=== PATIENT | male | born 1955 | race Caucasian/White ===

== ENCOUNTER 2018-01-18 08:00 | Outpatient (CLI) ==
[2018-01-18] MEDS ORDERED: ALBUTEROL 0.083% NEB NEB STA (09:14)
== END 2018-01-18 08:01 | disposition home or self-care (01) ==
LOC: CAR 08:00
PROVIDERS: ATTEND Physician Assistant
DX: J43.9 Emphysema, unspecified (principal); R07.9 Chest pain, unspecified
CPT/HCPCS: 93005; 93010

== ENCOUNTER 2018-01-31 06:35 | Outpatient (CLI) ==
--- NOTE | 2018-01-31 11:09 | STRESSECHO ---
Date of Test: 01/31/18 Ordering Physician: BRENDA LACEY APRN Occupation: RETIRED Reason for Exam: CHEST PAIN, EMPHYSEMA Smoking History: QUIT 2 1/2 YR AGO Height: 69" Weight: 175 LBS Current Medications: SYMBICORT, SPIRIVA, PRO AIR, ALBUTEROL, ZANTAC Resting EKG: SINUS RHYTHM/ NO CUTE CHANGES Target Heart Rate: 133/157 S-T SEGMENT STAGE MPH/GRADE HEART RATE BPM BLOOD PRESSURE MMHG RHYTHM +/- ELEVATION DEPRESSION SYMPTOMS,COMMENTS AT REST 60 118/70 SR X NO COMMENTS 1 1.7/10% 100 140/80 SR X NO COMMENTS 2 2.5/12% 3 3.4/14% 4 4.2/16% 5 5.0/18% Immediately After 130 SR X SHORT OF AIR Minutes Post Exercise 4:00 70 128/80 SR X SHORT OF AIR Minutes Post Exercise DURATION OF EXERCISE: 4:47 MAXIMUM HEART RATE REACHED: 130 REASON FOR TERMINATION: SHORT OF AIR 94% OXYGEN SATURATION WITH EXERCISE ON ROOM AIR METS 6.8 INTERPRETATION: 1. NO EVIDENCE OF ISCHEMIA 2. FEW ISOLATED PVC'S 3. SHORT 6 TO 8 BEAT RUN OF PAT/ SVT WITH EXERCISE NOTED (TWICE) 4. NO CHEST PAIN OR CHEST DISCOMFORT 5. BLOOD PRESSURE RESPONSE: NORMAL NORMAL LEFT VENTRICULAR CONTRACTILITY--RESTING AND POST EXERCISE MTDD
--- NOTE | 2018-01-31 11:13 | ECHOSTRESS ---
Date of Exam: 01/31/18 Ordering Physician: BRENDA LACEY APRN Reason for Echo: CHEST PAIN, STRESS TEST--NO ISCHEMIA M-Mode Normal Adult Results LV Dimensions Normal Adult Results AoV Opening excursions >1.6 LVEDD-base- 3.5-5.8 Ao root dimensions 2.0-3.7 LVESD-base- 3.1-4.6 L. Atrium dimensions 1.9-3.8 Post. Wall thickness 0.8-1.1 IV septum (thickness) 0.7-1.2 Post. Wall excursion 0.72-1.3 Septal motion Systolic motion R. Ventricular cavity 1.5-2.0 LVEF 60% Paradoxical septal wall motion 2-D: NORMAL LEFT VENTRICULAR CONTRACTILITY--RESTING AND POST EXERCISE M-MODE: MV: AV: TV: PV: CHAMBER SIZE: WALL MOTION: NORMAL LEFT VENTRICULAR CONTRACTILITY--RESTING AND POST EXERCISE PERICARDIUM: INTERPRETATION: 1. NORMAL LEFT VENTRICULAR CONTRACTILITY--RESTING AND POST EXERCISE MTDD
== END 2018-01-31 06:36 | disposition home or self-care (01) ==
LOC: CAR 06:35
PROVIDERS: ATTEND Physician Assistant
DX: R07.9 Chest pain, unspecified (principal)

== ENCOUNTER 2018-02-05 14:47 | Outpatient (CLI) ==
--- NOTE | 2018-02-05 15:35 | DI ---
EXAM: PA and lateral views of the chest HISTORY: Pneumonia COMPARISON: None FINDINGS: The cardiomediastinal silhouette is normal. There is no pneumothorax or pleural effusion. There is no consolidation, nodule or mass. The osseous structures demonstrate old healed right-quincy ed rib fractures and degenerative disease. IMPRESSION: No acute cardiopulmonary process
== END 2018-02-05 14:48 | disposition home or self-care (01) ==
LOC: RAD 14:47
PROVIDERS: ATTEND Physician Assistant
DX: J18.9 Pneumonia, unspecified organism (principal)

== ENCOUNTER 2018-06-04 10:57 | Outpatient (CLI) ==
[2018-05-30 08:15] VITALS: BMI 25.1
--- NOTE | 2018-06-04 14:47 | CT ---
Exam: CT chest with contrast and CT angiogram. HISTORY: Dyspnea. Stabbing pain in the back last and swelling in the legs. Cough with belinda st discomfort. History of emphysema. Procedures: Contiguous axial images were obtained through the chest following the intravenous admini stration of contrast. Multiplanar reformatted images, maximum intensity projection images and three- dimensional volume rendered images were also created and reviewed. Comparison: Chest CT without contrast 05/30/2018. Findings: There is no axillary lymphadenopathy. Subcentimeter lymph nodes are noted throughout the mediastinum, without linus mediastinal lymphadenopathy. There is atherosclerotic disease, including the coronary arteries. No pericardial effusion is noted. A tiny hiatal hernia is seen. Limited vis ualization of the upper abdominal soft tissues demonstrates no lymphadenopathy. Lung windows demonst rate pulmonary emphysematous disease without pneumothorax. Biapical pleural parenchymal thickening/s carring is again noted. The 6 mm x 2 mm right upper lobe opacity noted on the prior study measures a pproximately 3 mm x 3 mm currently, seen on axial image number 29. Calcified granulomata are again n oted. There is no new pulmonary lesion identified. The trachea and mainstem bronchi appear patent. Bone windows demonstrate mild degenerative findings in the spine. There is no acute fractures seen. Healed appearing bilateral rib fracture deformities are noted. There is pseudoarthrosis in the post erior right seventh rib. CT angiogram: Atherosclerotic disease is noted. The thoracic aorta demonstrates no dilatation. Ther e is no filling defect identified involving the main or segmental pulmonary arteries. Impressions: Pulmonary emphysematous disease. No evidence of pulmonary arterial thromboembolism is identified on this examination. Tiny hiatal hernia. Compared to 05/30/2018 the previously noted 6 mm x 2 mm right upper lobe nodule now measures 3 mm x 3 mm. Please see Fleischner Society recommendations for nodule follow-up, attached lobe. Findings were faxed to the emergency department at 2:35 p.m. Comment: Fleischner Society Recommendations on Incidental Pulmonary Nodule Follow-up: -measurements are for average length and width, non solid (ground glass) or partly solid nodules may require longer follow-up. Low risk patient: (minimal or absent known risk factors) <=4mm- no follow up needed >4-6mm- 12 mo, >6-8mm- initial at 6-12 mo, then 18-24 mo if no change >8mm- follow up CT at 3, 9, 24 mo, dynamic thin slice contrast CT, PET and/or biopsy High risk patient: (history of smoking or other risk factors) <=4mm- follow up CT at 12 mo >4-6mm- initial CT at 6-12 mo then 18-24 mo if no change >6-8mm- initial CT at 3-6, 9-12 then 18-24 mo >8mm- same as low risk
== END 2018-06-04 10:58 | disposition home or self-care (01) ==
LOC: RAD 10:57
PROVIDERS: ATTEND Physician Assistant
DX: R06.00 Dyspnea, unspecified (principal)

== ENCOUNTER 2018-07-19 08:19 | Outpatient (CLI) ==
[2018-05-30 08:15] VITALS: BMI 25.1
--- NOTE | 2018-07-19 08:59 | DI ---
EXAM: Two views of the chest. History: Pleuritic chest pain. Comparison: Chest radiograph 02/05/2018, chest CT 05/30/2018 Findings: Heart size is within normal limits. No focal consolidation. No appreciable pleural fluid and no pneumothorax. No acute osseous abnormalities. Emphysema. Chronic-appearing right-sided rib fractures again noted. Impression: No acute cardiopulmonary process. Emphysema.
== END 2018-07-19 08:20 | disposition home or self-care (01) ==
LOC: RAD 08:19
PROVIDERS: ATTEND Physician Assistant
DX: R07.81 Pleurodynia (principal)

== ENCOUNTER 2018-11-07 07:12 | Outpatient (CLI) ==
[2018-05-30 08:15] VITALS: BMI 25.1
--- NOTE | 2018-11-07 10:52 | US ---
EXAM: ULTRASOUND ABDOMEN LIMITED HISTORY: Right upper quadrant pain with nausea and vomiting FINDINGS: Ultrasound abdomen, limited. Weinberg-scale ultrasound and color Doppler was performed. Live r size was measured at about 12 cm, within normal limits. The liver parenchyma demonstrated normal so nographic appearance without evidence of intrahepatic biliary dilatation or focal lesion. Patent and hepatopedal main portal vein. No evidence of gallbladder stones or sludge. Gallbladder wall thickness was normal at 0.18 centimete rs and the common duct diameter normal at 0.34 centimeters. The visualized portions of the pancreas appeared unremarkable. IMPRESSION: Findings within normal limits.
== END 2018-11-07 07:13 | disposition home or self-care (01) ==
LOC: RAD 07:12
PROVIDERS: ATTEND Nurse Practitioner Family
DX: R10.11 Right upper quadrant pain (principal)

== ENCOUNTER 2018-11-08 07:30 | Outpatient (CLI) ==
[2018-05-30 08:15] VITALS: BMI 25.1
--- NOTE | 2018-11-08 09:31 | US ---
EXAM: Limited abdominal ultrasound. History: Right lower quadrant abdominal pain. Technique: Multiple sonographic images through the abdomen were obtained. Color duplex Doppler was used to interrogate vascular flow. Findings: The appendix is not identified. No fluid collections are seen sonographically. Impression: No sonographic abnormalities
== END 2018-11-08 07:31 | disposition home or self-care (01) ==
LOC: RAD 07:30
PROVIDERS: ATTEND Nurse Practitioner Family
DX: R10.31 Right lower quadrant pain (principal)

== ENCOUNTER 2019-03-29 11:21 | Emergency (ER) ==
[2019-03-29 11:27] VITALS: BP 137/77; TEMP 98.4; BMI 27.2
[2019-03-29] MEDS ORDERED: SODIUM CHLORIDE 1,000 ML IV STA (11:33)
[2019-03-29] MEDS ORDERED: DUONEB NEB STA (11:33)
--- NOTE | 2019-03-29 11:42 | ED.PDOC ---
General ED Provider: Dr. ANIBAL REYNOLDS Chief Complaint: Shortness of Air Stated Complaint: Patient states that he was seen 2 days ago at [facility] ER for shortntess of breath. Given one dose of steroids and breathing treatments, no antibiotics given because he did not have any infiltrate on chest x-ray. Today he feels worse with wheezing at home needing a treatment. Had a fever of 102 T home the other day Time Seen by Physician: 11:31 Mode of Arrival: Walk-In Information Source: Patient Primary Care Provider: ALFRED DE ELON Nursing and Triage Documentation Reviewed and Agree: Yes Does patient meet sepsis criteria?: No System Inflammatory Response Syndrome: Not Applicable Sepsis Protocol: For patient's 13 years and over: Temp is 96.8 and below OR 101 and greater Pulse >90 BPM Resp >20/minute Acutely Altered Mental Status Are patient's symptoms suggestive of a new infection, such as: -Pneumonia -Skin, Soft Tissue -Endocarditis -UTI -Bone, Joint Infection -Implantable Device -Acute Abdominal Infection -Wound Infection -Meningitis -Blood Stream Catheter Infection -Unknown Respiratory Complaint Exam - Shortness of Air Complaint/Exam Onset/Duration: 3 days Symptoms Are: Still present Timing: Constant Initial Severity: Severe Current Severity: Moderate Character: Reports: Dyspnea at rest Aggravating: Reports: Weather Alleviating: Reports: Bronchodilators Associated Signs and Symptoms: Reports: Cough, Wheezing History of Healthcare-Acquired Pneumonia: No Pulmonary Embolism Risk Factors: Reports: None Cardiac Risk Factors: Reports: None Pseudomonas Risk Factors: Reports: None Tuberculosis Risk Factors: Reports: None Home Oxygen Use: No Recent Stress Test: No Recent Echo/LV Function: No Stridor Present: No Tracheal Deviation: No Subcutaneous Emphysema: No Accessory Muscle Use: No Diminished Breath Sounds: Yes Prolonged Expiratory Phase: No Unable to Speak Full Sentences: No Fatigue: No Leg Swelling: No Tasha's Sign Present: No Grunting Respirations: No Kussmaul Respirations: No Differential Diagnoses: COPD Exacerbation, Bronchitis, URI Review of Systems - Review Of Systems Constitutional: Reports: Fever Eyes: Reports: No symptoms Ears, Nose, Mouth, Throat: Reports: No symptoms Respiratory: Reports: Cough, Short of air, Wheezing Cardiac: Reports: No symptoms GI: Reports: No symptoms : Reports: No symptoms Musculoskeletal: Reports: No symptoms Skin: Reports: No symptoms Neurological: Reports: No symptoms Endocrine: Reports: No symptoms Hematologic/Lymphatic: Reports: No symptoms All Other Systems: Reviewed and Negative Past Medical History - Past Medical History Previously Healthy: Yes Endocrine: Reports: None Cardiovascular: Reports: None Respiratory: Reports: COPD Hematological: Reports: None Gastrointestinal: Reports: None Genitourinary: Reports: None Neuro/Psych: Reports: None Musculoskeletal: Reports: None Cancer: Reports: None - Surgical History General Surgical History: Reports: None - Family History Family History: Reports: None - Social History Smoking Status: Former smoker Hx Substance Use: No Alcohol Screening: Occasionally Physical Exam - Physical Exam Appearance: Ill-appearing Ill-appearing: Mild Pain Distress: None Respiratory: Wheezes (mild scattered ) GI/: Soft, Nontender, No masses, Bowel sounds normal, No Organomegaly Musculoskeletal: Normal strength, ROM intact, No edema, No calf tenderness Skin: Warm, Dry, Normal color Neurological: Alert, Oriented Psychiatric: Anxious Critical Care Note - Critical Care Note Total Time (mins): 30 Course - Course Hematology/Chemistry: 03/29/19 11:48 03/29/19 11:48 Orders, Labs, Meds: Lab Review 03/29/19 03/29/19 03/29/19 11:33 11:48 11:48 WBC 10.76 H RBC 4.76 Hgb 12.9 L Hct 39.6 L MCV 83.2 MCH 27.1 MCHC 32.6 RDW Coeff of Marnie 13.1 Plt Count 248 Immature Gran % (Auto) 0.6 Neut % (Auto) 65.6 Lymph % (Auto) 22.4 [place] % (Auto) 9.5 Eos % (Auto) 1.5 Baso % (Auto) 0.4 Immature Gran # (Auto) 0.1 Neut # (Auto) 7.1 H Lymph # (Auto) 2.4 [place] # (Auto) 1.0 Eos # (Auto) 0.2 Baso # (Auto) 0.0 Puncture Site Rrad O2 Saturation 96.0 ABG pH 7.402 ABG pCO2 38.2 ABG pO2 82.0 L ABG HCO3 23.7 ABG Total CO2 25 ABG Base Excess -1 Nasim Test + FiO2 % 21.0 Sodium 138.0 Potassium 4.14 Chloride 100.7 Carbon Dioxide 28.6 Anion Gap 12.84 BUN 10.4 Creatinine 0.91 Estimated GFR (MDRD) 84.00 BUN/Creatinine Ratio 11.42 Glucose 94.9 Lactic Acid Calcium 9.07 Total Bilirubin 0.75 AST 20.3 ALT 20.8 Alkaline Phosphatase 62.4 Total Creatine Kinase 53.0 L Troponin I < 0.012 Total Protein 7.27 Albumin 4.29 Globulin 2.98 Albumin/Globulin Ratio 1.43 Procalcitonin 03/29/19 03/29/19 11:48 11:48 WBC RBC Hgb Hct MCV MCH MCHC RDW Coeff of Marnie Plt Count Immature Gran % (Auto) Neut % (Auto) Lymph % (Auto) [place] % (Auto) Eos % (Auto) Baso % (Auto) Immature Gran # (Auto) Neut # (Auto) Lymph # (Auto) [place] # (Auto) Eos # (Auto) Baso # (Auto) Puncture Site O2 Saturation ABG pH ABG pCO2 ABG pO2 ABG HCO3 ABG Total CO2 ABG Base Excess Nasim Test FiO2 % Sodium Potassium Chloride Carbon Dioxide Anion Gap BUN Creatinine Estimated GFR (MDRD) BUN/Creatinine Ratio Glucose Lactic Acid 0.81 Calcium Total Bilirubin AST ALT Alkaline Phosphatase Total Creatine Kinase Troponin I Total Protein Albumin Globulin Albumin/Globulin Ratio Procalcitonin 0.87 Orders Category Date Time Status ABG DRAW REQUEST Stat CARDIO 03/29/19 11:34 Completed EKG-(ED ONLY) Stat CARDIO 03/29/19 11:33 Completed NEBULIZER TREATMENT Stat CARDIO 03/29/19 11:34 Completed ED PAPER MACHINE OPERATOR APPLIED .ONCE EMERGENCY 03/29/19 11:33 Active ED IV/MEDIPORT/POWERPORT .ONCE EMERGENCY 03/29/19 11:33 Active ABG Stat LAB 03/29/19 11:33 Completed BLOOD CULTURE (ED ONLY) Stat LAB 03/29/19 11:48 Received CBC W/ AUTO DIFF Stat LAB 03/29/19 11:48 Completed COMPREHENSIVE METABOLIC PANEL Stat LAB 03/29/19 11:48 Completed CREATINE KINASE Stat LAB 03/29/19 11:48 Completed LACTIC ACID Stat LAB 03/29/19 11:48 Completed PROCALCITONIN Stat LAB 03/29/19 11:48 Completed TROPONIN I Stat LAB 03/29/19 11:48 Completed 0.9 % Sodium Chloride [Saline Flush] MEDS 03/29/19 11:33 Discontinued 1 syr IVF PRN PRN Ipratropium/Albuterol Neb [Duoneb] MEDS 03/29/19 11:33 Discontinued 1 vial NEB ONCE STA Levofloxacin/D5w [Levaquin] 150 ml MEDS 03/29/19 13:02 Discontinued IV .STK-MED Levofloxacin/D5w [Levaquin] 750 mg MEDS 03/29/19 12:40 Discontinued Premix 150 ml D5w 1 bag IV ONCE Sodium Chloride 0.9% [Sodium Chloride] 1,000 ml MEDS 03/29/19 11:33 Discontinued IV BOLUS CHEST, 2 VIEWS PA & LAT Stat RADS 03/29/19 11:33 Completed Medications Discontinued Medications Generic Name Dose Route Start Last Admin Trade Name Freq PRN Reason Stop Dose Admin Albuterol/Ipratropium 1 vial 03/29/19 11:33 03/29/19 12:35 Duoneb NEB 03/29/19 11:34 1 vial ONCE STA Administration Sodium Chloride 1,000 mls @ 1,000 mls/hr 03/29/19 11:33 03/29/19 11:53 Sodium Chloride IV 03/29/19 12:32 1,000 mls/hr BOLUS STA Administration Levofloxacin/Dextrose 750 mg/ 150 mls @ 100 mls/hr 03/29/19 12:40 03/29/19 13 :06 Dextrose IV 03/29/19 14:09 100 mls/hr ONCE STA Administration Sodium Chloride 1 syr 03/29/19 11:33 03/29/19 11:53 Saline Flush IVF 1 syr PRN PRN Administration To flush IV Vital Signs: Temp Pulse Resp BP Pulse Ox 03/29/19 11:22 98.4 F 83 20 137/77 93 L Departure - Departure Time of Disposition: 14:45 Disposition: HOME SELF-CARE Discharge Problem: Community acquired pneumonia of left upper lobe of lung Instructions: Bacterial Pneumonia (ED) Condition: Stable Pt referred to PMD for follow-up: Yes IPMP verified?: No Additional Instructions: take medications as prescribed Return if worse at any time continue home breathing treatments. Prescriptions: Levofloxacin [Levaquin] 500 mg PO DAILY #10 tablet Prednisone 20 mg PO DAILYWM #5 tablet Allergies/Adverse Reactions: Allergies Penicillins Adverse Reaction (Verified 03/29/19 11:27) Home Medications: Ambulatory Orders Albuterol Sulfate 0.083% Neb [Albuterol 0.083% Neb] 1 vial NEB RTQ6H 05/30/18 Albuterol Sulfate [Proair Hfa] 2 puff IH Q4H 05/30/18 Budesonide/Formoterol Fumarate [Symbicort 160-4.5 Mcg Inhaler] 10.2 puff IH BID 05/30/18 Umeclidinium [place] [Incruse Ellipta] 62.5 mcg IH DAILY 05/30/18 Levofloxacin [Levaquin] 500 mg PO DAILY #10 tablet 03/29/19 Omeprazole 20 mg PO DAILY 03/29/19 Prednisone 20 mg PO DAILYWM #5 tablet 03/29/19 Disposition Discussed With: Patient, Family
--- NOTE | 2019-03-29 12:01 | DI ---
Exam: Two-view chest x-ray. Date: 03/29/2019. Comparison: 07/19/2018. HISTORY: Cough. FINDINGS: No acute osseous abnormalities are seen. There are old healed right-sided rib fractures. The lungs are hyperinflated. There is a subtle infiltrate in the left upper lobe. The right lung i s clear. Cardiac silhouette and pulmonary vasculature are normal. Impression: Emphysematous changes with subtle infiltrate in the left upper lobe. Recommend correlat ion to exclude pneumonia.
[2019-03-29] MEDS ORDERED: LEVAQUIN 750 MG in PREMIX 150 ML D5W 1 BAG IV STA (12:40)
[2019-03-29] MEDS ORDERED: LEVAQUIN 150 ML IV ONE (13:02)
== END 2019-03-29 14:50 | disposition home or self-care (01) ==
LOC: ED 11:21
DX: J18.1 Lobar pneumonia, unspecified organism (principal); R06.02 Shortness of breath; J44.9 Chronic obstructive pulmonary disease, unspecified; Z79.899 Other long term (current) drug therapy
CPT/HCPCS: 36415; 80053; 82550; 82803; 83605; 84145; 84484; 85025; 87040; 93005; 93010; 94640; 96365; 99283

== ENCOUNTER 2019-05-01 13:07 | Outpatient (RCR) ==
[2019-05-01 14:09] VITALS: BP 124/54
== END 2019-05-24 23:59 ==
LOC: PUL.REHAB 13:07
PROVIDERS: ATTEND Internal Medicine Critical Care Medicine
DX: J44.9 Chronic obstructive pulmonary disease, unspecified (principal)